=== PATIENT | female | born 1985 ===

== ENCOUNTER 2021-03-09 22:42 | Emergency (ER) | payer SELFPAY ==
[2021-03-10 01:43] LABS: Basophils % (Auto) 0.3 % (0.0-1.8); Eosinophils % (Auto) 0.4 % (0.0-4.3); Hemoglobin 9.8 gm/dl (10.1-14.3); Lymphocytes # (Auto) 1.7 K/mm3 (1.2-5.4); Mean Corpuscular HGB Conc 35 % (30-34); Mean Corpuscular Volume 85 fl (79-97); Monocytes # (Auto) 0.4 K/mm3 (0.0-0.8); Monocytes % (Auto) 3.6 % (0.0-7.3); Platelet Count 303 K/mm3 (140-440); Red Blood Count 3.29 M/mm3 (3.65-5.03); Red Cell Distribution Width 16.5 % (13.2-15.2)
[2021-03-10 02:00] LABS: BUN/Creatinine Ratio 15; Blood Urea Nitrogen 12 mg/dL (7-17); Calcium 9.2 mg/dL (8.4-10.2); Hemolysis Index 4
[2021-03-10 03:01] LABS: HCG Qualitative,Urine Negative (Negative)
[2021-03-10 03:15] LABS: Bilirubin,Urine NEG (Negative); Blood,Urine LG (Negative); Color,Urine Yellow (Yellow); Mucus,Urine 1+ /HPF; Protein,Urine <15 mg/dL mg/dL (Negative); Urobilinogen,Urine < 2.0 mg/dL (<2.0)
--- NOTE | 2021-03-10 08:33 | Emergency Department Report ---
ED Female HPI - General Chief complaint: Vaginal Bleeding Stated complaint: VAGINAL BLEEDING Time Seen by Provider: 03/10/21 07:40 Source: patient Mode of arrival: Ambulatory Limitations: No Limitations - History of Present Illness Initial comments: 36-year-old female with history of fibroids and dysfunctional uterine bleeding for more than a year presents to the ED with heavy vaginal bleeding since last night. Patient states she has been experiencing heavy bleeding for quite some time now. States she has seen Dr. Veloz and Dr. Salcido in the office. Patient states she was recently started on Depo injections. States a couple of weeks ago she was supposed to go to the OR with Dr. Veloz to have a procedure performed, however, at the last minute she states that Dr. Veloz did not think she actually needed the procedure. Patient reports she has still been having irregular bleeding and last night it became very heavy with large cl ots. She came to the ED last night and has been in the waiting room for almost 10 hours now. Patient states that around 2 AM the bleeding slowed down and is currently not as heavy as it was when she came in. She denies any chest pain, shortness of breath, dizziness or syncopal episodes. MD Complaint: vaginal bleeding -: Last night Severity: severe Consistency: intermittent Improves with: none Worsens with: none Are you Now?: No Associated Symptoms: vaginal bleeding. denies: syncope - Related Data Home Medications Medication Instructions Recorded Confirmed Last Taken Iron 1 tab PO DAILY 02/18/21 02/18/21 Unknown Allergies Allergy/AdvReac Type Severity Reaction Status Date / Time No Known Allergies Allergy Unverified 02/18/21 12:09 ED Review of Systems ROS: Stated complaint: VAGINAL BLEEDING Other details as noted in HPI Comment: All other systems reviewed and negative Genitourinary: as per HPI ED Past Medical Hx - Past Medical History Hx Hypertension: No Hx Heart Attack/AMI: No Hx Congestive Heart Failure: No Hx Diabetes: No Hx GERD: Yes Hx Liver Disease: No Hx Sickle Cell Disease: No Hx Arthritis: No Hx Headaches / Migraines: No Hx Seizures: No Hx Kidney Stones: Yes (??-NOT SURE-SAID PASSED SM ONE BEFORE IN UNDERWEAR) Hx Asthma: No Hx COPD: No Hx Tuberculosis: No Hx HIV: No - Surgical History Hx Pacemaker: No Hx Internal Defibrillator: No Hx Breast Surgery: Yes (DINORAH. IMPLANTS) - Social History Smoking Status: Never Smoker - Medications Home Medications: Home Medications Medication Instructions Recorded Confirmed Last Taken Type Iron 1 tab PO DAILY 02/18/21 02/18/21 Unknown History ED Physical Exam - General Limitations: No Limitations General appearance: alert, in no apparent distress - Head Head exam: Present: atraumatic, normocephalic - Eye Eye exam: Present: normal appearance, EOMI - ENT ENT exam: Present: mucous membranes moist - Neck Neck exam: Present: normal inspection - Respiratory Respiratory exam: Present: normal lung sounds bilaterally. Absent: respiratory distress - Cardiovascular Cardiovascular Exam: Present: regular rate, normal rhythm - GI/Abdominal GI/Abdominal exam: Present: soft. Absent: distended, tenderness - Extremities Exam Extremities exam: Present: normal inspection - Neurological Exam Neurological exam: Present: alert, oriented X3 - Psychiatric Psychiatric exam: Present: normal affect, normal mood - Skin Skin exam: Present: warm, dry, intact, normal color ED Course Vital Signs 03/10/21 03/10/21 03/10/21 01:06 07:53 08:01 Temperature 99.2 F Pulse Rate 129 H 105 H 97 H Respiratory 16 11 L 11 L Rate Blood Pressure 135/92 123/67 Blood Pressure [Right] O2 Sat by Pulse 99 100 100 Oximetry 03/10/21 09:02 Temperature Pulse Rate 97 H Respiratory 16 Rate Blood Pressure Blood Pressure 104/53 [Right] O2 Sat by Pulse 100 Oximetry ED Medical Decision Making - Lab Data Result diagrams: 03/10/21 01:11 03/10/21 01:11 - Medical Decision Making 36-year-old female, history of dysfunctional uterine bleeding for the past year presents to ED with vaginal bleeding. Patient states she was initially having heavy bleeding with clots last night, however, is much improved at this time. Vital signs are normal. Hemoglobin is 9.8. Patient does not require a transfusion at this time. She will be discharged. She is advised to follow-up with Dr. Veloz. Return precautions given. - Differential Diagnosis Anemia, dysfunctional uterine bleeding, fibroids Critical care attestation.: If time is entered above; I have spent that time in minutes in the direct care of this critically ill patient, excluding procedure time. ED Disposition Clinical Impression: Dysfunctional uterine bleeding Disposition: DC-01 TO HOME OR SELFCARE Is pt being admited?: No Condition: Stable Instructions: Dysfunctional Uterine Bleeding Referrals: DARRYN VELOZ MD [Staff Physician] - [facility] Time of Disposition: 08:34
[2021-03-10 09:02] VITALS: BP 104/53
== END 2021-03-10 09:10 | disposition home or self-care (01) ==
LOC: ED 22:42
DX: N93.8 Other specified abnormal uterine and vaginal bleeding (principal); K21.9 Gastro-esophageal reflux disease without esophagitis; N20.0 Calculus of kidney; Z98.890 Other specified postprocedural states; Z79.899 Other long term (current) drug therapy
CPT/HCPCS: 36415; 80048; 81001; 81025; 85025; 86850; 86900; 86901; 87086; 99283

== ENCOUNTER 2021-06-26 11:28 | Observation (INO) | payer SELFPAY ==
--- NOTE | 2021-06-26 11:37 | Emergency Department Report ---
ED Female HPI - General Stated complaint: LOW IRON/BLOOD TRANSFUSION Time Seen by Provider: 06/26/21 11:29 Source: patient Limitations: Language Barrier (Strawhat Blocking Operator used) - History of Present Illness Initial comments: 36-year-old female, history of dysfunctional uterine bleeding, fibroids, presents to ED for low hemoglobin. Patient reports history of heavy vaginal bleeding. States she is currently taking any for approximately 40 days straight. Patient states her certified pediatric nurse practitioner has her taking Depo injections. Patient states 2 days ago she had an appointment with certified pediatric nurse practitioner, Dr. Sosa. Patient reports she had blood drawn at that time. She received a call today informing her that her hemoglobin was low and that she needed to come to the ED for platelet transfusion. Patient reports headache, dizziness. MD Complaint: vaginal bleeding -: days(s) (40) Severity: severe Consistency: constant Improves with: none Worsens with: none Are you Now?: No Associated Symptoms: vaginal bleeding, headaches, weakness. denies: shortness of breath - Related Data Home Medications Medication Instructions Recorded Confirmed Last Taken Iron 1 tab PO DAILY 02/18/21 06/26/21 06/25/21 22:00 Allergies Allergy/AdvReac Type Severity Reaction Status Date / Time No Known Allergies Allergy Unverified 02/18/21 12:09 ED Review of Systems ROS: Stated complaint: LOW IRON/BLOOD TRANSFUSION Other details as noted in HPI Comment: All other systems reviewed and negative Genitourinary: as per HPI, abnormal menses Neurological: other (Reports dizziness) ED Past Medical Hx - Past Medical History Hx Hypertension: No Hx Heart Attack/AMI: No Hx Congestive Heart Failure: No Hx Diabetes: No Hx GERD: Yes Hx Liver Disease: No Hx Sickle Cell Disease: No Hx Arthritis: No Hx Headaches / Migraines: No Hx Seizures: No Hx Kidney Stones: Yes (??-NOT SURE-SAID PASSED SM ONE BEFORE IN UNDERWEAR) Hx Asthma: No Hx COPD: No Hx Tuberculosis: No Hx HIV: No - Surgical History Hx Pacemaker: No Hx Internal Defibrillator: No Hx Breast Surgery: Yes (DINORAH. IMPLANTS) - Social History Smoking Status: Never Smoker - Medications Home Medications: Home Medications Medication Instructions Recorded Confirmed Last Taken Type Iron 1 tab PO DAILY 02/18/21 06/26/21 06/25/21 22:00 History ED Physical Exam - General General appearance: alert, in no apparent distress - Head Head exam: Present: atraumatic, normocephalic - Eye Eye exam: Present: normal appearance, EOMI - ENT ENT exam: Present: mucous membranes moist - Neck Neck exam: Present: normal inspection - Respiratory Respiratory exam: Present: normal lung sounds bilaterally. Absent: respiratory distress - Cardiovascular Cardiovascular Exam: Present: normal rhythm, tachycardia - GI/Abdominal GI/Abdominal exam: Present: soft. Absent: distended, tenderness - Extremities Exam Extremities exam: Present: normal inspection - Neurological Exam Neurological exam: Present: alert, oriented X3 - Psychiatric Psychiatric exam: Present: normal affect, normal mood - Skin Skin exam: Present: warm, dry, intact, pallor ED Course Vital Signs 06/26/21 06/26/21 06/26/21 11:44 12:03 12:18 Temperature 99.3 F 98.2 F Pulse Rate 131 H 122 H Respiratory 20 16 14 Rate Blood Pressure 116/87 Blood Pressure 112/63 [Left] O2 Sat by Pulse 98 98 98 Oximetry 06/26/21 13:07 Temperature Pulse Rate 127 H Respiratory 14 Rate Blood Pressure Blood Pressure 117/53 [Left] O2 Sat by Pulse 100 Oximetry - Consultations Consultation #1: 06/26/21 14:[address] Sosa. States she will admit the patient. ED Medical Decision Making - Lab Data Result diagrams: 06/26/21 11:41 06/26/21 11:41 - Medical Decision Making 36-year-old female, history of dysfunctional uterine bleeding, uterine fibroids, presents to ED with a low hemoglobin. Hemoglobin is 4.3. 2 units of PRBCs ordered for transfusion. I spoke with Dr. Sosa, patient's certified pediatric nurse practitioner, who will admit the patient for further management. - Differential Diagnosis Anemia, dysfunctional uterine bleeding Critical Care Time: Yes Critical care time in (mins) excluding proc time.: 35 Critical care attestation.: If time is entered above; I have spent that time in minutes in the direct care of this critically ill patient, excluding procedure time. Critical Care Time: 35 min ED Disposition Clinical Impression: Anemia, DUB (dysfunctional uterine bleeding) Disposition: ADMITTED INPATIENT Is pt being admited?: Yes Condition: Stable Referrals: PRIMARY CARE, [Primary Care Provider] - 3-5 Days Time of Disposition: 14:36
[2021-06-26 12:29] LABS: Basophils % (Auto) 0.4 % (0.0-1.8); Lymphocytes # (Auto) 0.6 K/mm3 (1.2-5.4); Lymphocytes % (Auto) 13.1 % (13.4-35.0); Mean Corpuscular HGB Conc 32 % (30-34); Mean Corpuscular Volume 89 fl (79-97); Monocytes % (Auto) 5.4 % (0.0-7.3); Platelet Count 280 K/mm3 (140-440); Red Cell Distribution Width 14.8 % (13.2-15.2)
[2021-06-26 12:48] LABS: Blood Urea Nitrogen 10 mg/dL (7-17); Calcium 8.9 mg/dL (8.4-10.2); Hemolysis Index 3
[2021-06-26 12:49] LABS: BUN/Creatinine Ratio 14
[2021-06-26 13:35] LABS: Monocytes # (Auto) 0.3 K/mm3 (0.0-0.8); Red Blood Count 1.52 M/mm3 (3.65-5.03)
[2021-06-26 14:04] LABS: Hematocrit 13.5 % (30.3-42.9); Hemoglobin 4.3 gm/dl (10.1-14.3)
[2021-06-26] MEDS ORDERED: SODIUM CHLORIDE 0.9% 500 ML 500 ML IV ONE ×2 (14:04→15:44)
--- NOTE | 2021-06-26 15:42 | History and Physical Report ---
History of Present Illness Date of examination: 06/26/21 Date of admission: 06/26/21 14:39 Chief complaint: dysfunctional uterine bleeding menorrhagia severe anemia Past History Past Surgical History: other (bilateral breast implants) Social history: no significant social history Medications and Allergies Allergies Allergy/AdvReac Type Severity Reaction Status Date / Time No Known Allergies Allergy Unverified 02/18/21 12:09 Home Medications Medication Instructions Recorded Confirmed Last Taken Type Iron 1 tab PO DAILY 02/18/21 06/26/21 06/25/21 22:00 History Review of Systems All systems: negative (heavy vaginal bleeding) - Vital Signs Vital signs: Vital Signs Temp Pulse Resp BP Pulse Ox 99.3 F 131 H 20 116/87 98 06/26/21 11:44 06/26/21 11:44 06/26/21 11:44 06/26/21 11:44 06/26/21 11:44 Temp Pulse Resp BP Pulse Ox 98.9 F 117 H 14 113/62 100 06/26/21 15:30 06/26/21 15:30 06/26/21 15:30 06/26/21 15:30 06/26/21 15:30 - Physical Exam Breasts: Positive: deferred Cardiovascular: Other (tachycardia) Lungs: Positive: Clear to auscultation Abdomen: Positive: normal appearance, normal bowel sounds Genitourinary (Female): Positive: normal external genitalia Vagina: Positive: normal moisture Anus/Rectum: Positive: normal perianal skin Extremities: Positive: normal Deep Tendon Reflex Grade: Normal +2 Results Result Diagrams: 06/26/21 11:41 06/26/21 11:41 Abnormal lab results 06/26/21 06/26/21 06/26/21 Range/Units 11:41 11:41 11:46 RBC 1.52 L (3.65-5.03) M/mm3 Hgb 4.3 L* (10.1-14.3) gm/dl Hct 13.5 L* (30.3-42.9) % Lymph % (Auto) 13.1 L (13.4-35.0) % Lymph # (Auto) 0.6 L (1.2-5.4) K/mm3 Seg Neutrophils % 80.1 H (40.0-70.0) % Chloride 109.8 H (98-107) mmol/L Carbon Dioxide 20 L (22-30) mmol/L Glucose 124 H (65-100) mg/dL Crossmatch See Detail All other labs normal. Assessment and Plan dysfunctional uterine bleeding: obtain US and consider provera at discharge. severe anemia: admit for blood transfusion Bethany Sosa MD
[2021-06-26] MEDS ORDERED: WITCH HAZEL/ GLYCERIN PAD TP PRN (15:46)
[2021-06-26] MEDS ORDERED: ONDANSETRON 4 MG/2 ML INJ IV PRN (15:46)
[2021-06-26] MEDS ORDERED: LANOLIN/ZINC/DIMETHICONE (LANSINOH) 7 GM TP PRN (15:46)
[2021-06-26] MEDS ORDERED: PROMETHAZINE 25 MG RECT SUPP PR PRN (15:46)
[2021-06-26] MEDS ORDERED: PROMETHAZINE 25 MG TAB PO PRN (15:46)
[2021-06-26] MEDS ORDERED: MAGNESIUM HYDROXIDE (MOM) ORAL LIQD UDC PO PRN (15:46)
[2021-06-26] MEDS ORDERED: HYDROcodone/ACETAMINOPHEN 5-325 MG TAB PO PRN (15:46)
[2021-06-26] MEDS: ACETAMINOPHEN 325 MG TAB PO PRN ×2 (18:25→22:13)
[2021-06-26] MEDS: diphenhydrAMINE 25 MG CAP PO PRN (18:25)
--- NOTE | 2021-06-26 20:37 | Ultrasound Report ---
ULTRASOUND PELVIS INDICATION / CLINICAL INFORMATION: dysfunctional uterine bleeding: DAIRY MANAGER US. TECHNIQUE: Transvaginal. Duplex Color Doppler used: Yes. COMPARISON: None available FINDINGS: UTERUS: - Appearance: Heterogeneous. - Size (cm): 7.0 x 5.2 x 6.7 - Endometrial Complex (if present): No significant abnormality.. Thickness in cm (if measured) = 0.6 - Mass or cyst: 2 heterogeneous fibroids in the uterine fundus measuring 4.1 cm and 3.6 cm respective ly. The larger fibroid appears submucosal. - Additional findings: Small nabothian cysts in the cervix. RIGHT ADNEXA: No significant ovarian cyst or mass. Normal color Doppler blood flow. LEFT ADNEXA: No significant ovarian cyst or mass. Normal color Doppler blood flow. URINARY BLADDER: No significant abnormality. FREE FLUID: None. ADDITIONAL FINDINGS: None. IMPRESSION: 1. Fibroid in the uterine fundus one of which is submucosal in location. Signer Name: Celsa Fink MD Signed: 06/26/2021 8:32 PM Workstation Name: [id number]
[2021-06-27] MEDS: IBUPROFEN 600 MG TAB PO SCH ×2 (03:35→05:36)
[2021-06-27 07:56] LABS: Hematocrit 24.6 % (30.3-42.9); Hemoglobin 8.4 gm/dl (10.1-14.3)
--- NOTE | 2021-06-27 10:06 | Progress Note ---
Subjective - Subjective Date of service: 06/27/21 Interval history: Dysfunctional uterine bleeding with submucosal fibroids Severe anemia hemoglobin 4.5 Plan for transfusion of 4 units PRBCs With the chemical research worker we discussed surgical options Risk benefits possible complications of each reviewed to include but not limited to NovaSure ablation, myomectomy, hysterectomy. Patient does not want surgery on this admission. She will be discharged home after 4 units PRBCs transfusion follow-up in 48 hours for an outpatient plan for surgical management. She remains hemodynamically stable. Transfusion of 4 units total for persistent tachycardia and headache with active vaginal bleeding. Bethany Sosa MD Patient reports: appetite normal, voiding normally, ambulating normally Objective - Vital Signs Latest vital signs: Vital Signs Temp Pulse Pulse Resp BP BP Pulse Ox 06/27/21 07:50 98.2 F 88 18 92/50 99 06/27/21 06:01 98.7 F 98 H 16 104/61 99 06/27/21 05:36 18 06/27/21 03:35 18 06/27/21 00:55 98.6 F 105 H 18 107/64 98 06/27/21 00:14 98.7 F 105 H 16 114/67 99 06/26/21 23:55 103 H 18 104/67 99 06/26/21 23:25 105 H 18 114/67 99 06/26/21 23:13 18 06/26/21 22:55 102 H 18 113/77 99 06/26/21 22:25 99.1 F 109 H 18 109/64 100 06/26/21 22:20 99.1 F 06/26/21 22:13 18 06/26/21 22:00 109 H 110 H 18 106/61 100 06/26/21 21:08 118 H 16 111/65 100 06/26/21 19:25 18 06/26/21 18:15 99.8 F H 108 H 18 117/68 06/26/21 16:31 99.9 F H 115 H 18 129/75 06/26/21 16:01 99.5 F 110 H 16 111/65 97 06/26/21 15:47 100 06/26/21 15:46 98.9 F 119 H 14 124/63 99 06/26/21 15:31 98.2 F 115 H 18 113/61 06/26/21 15:30 98.9 F 117 H 14 113/62 100 06/26/21 15:16 98.5 F 124 H 16 121/63 100 06/26/21 13:07 127 H 14 117/53 100 06/26/21 12:18 14 98 06/26/21 12:03 98.2 F 122 H 16 112/63 98 06/26/21 11:44 99.3 F 131 H 20 116/87 98 Intake and Output 06/26/21 06/27/21 06/27/21 23:59 07:59 15:59 Intake Total 380 430 Balance 380 430 Intake: IV 10 Right Antecubital 10 Oral 120 Intake, Free Water 180 Blood Product 250 250 Leukoreduced Red Blood 0 250 Cells Unit [id number] Leukoreduced Red Blood 250 Cells Unit [id number] Other: Total, Intake Amount 120 Voiding Method Toilet # Voids Void 1 2 Weight 68.946 kg - Exam Breasts: Present: deferred Cardiovascular: Present: Regular rate Lungs: Present: Clear to auscultation Abdomen: Present: normal appearance, soft, normal bowel sounds Uterus: Present: normal Extremities: Present: normal Deep Tendon Reflex Grade: Normal but brisk +3 - Labs Labs: Abnormal lab results 06/26/21 06/26/21 06/26/21 Range/Units 11:41 11:41 11:46 RBC 1.52 L (3.65-5.03) M/mm3 Hgb 4.3 L* (10.1-14.3) gm/dl Hct 13.5 L* (30.3-42.9) % Lymph % (Auto) 13.1 L (13.4-35.0) % Lymph # (Auto) 0.6 L (1.2-5.4) K/mm3 Seg Neutrophils % 80.1 H (40.0-70.0) % Chloride 109.8 H (98-107) mmol/L Carbon Dioxide 20 L (22-30) mmol/L Glucose 124 H (65-100) mg/dL Crossmatch See Detail 06/27/21 Range/Units 07:43 RBC (3.65-5.03) M/mm3 Hgb 8.4 L D (10.1-14.3) gm/dl Hct 24.6 L D (30.3-42.9) % Lymph % (Auto) (13.4-35.0) % Lymph # (Auto) (1.2-5.4) K/mm3 Seg Neutrophils % (40.0-70.0) % Chloride (98-107) mmol/L Carbon Dioxide (22-30) mmol/L Glucose (65-100) mg/dL Crossmatch
--- NOTE | 2021-06-27 11:33 | Discharge Summary ---
Providers - Providers Date of Admission: 06/26/21 14:39 Date of discharge: 06/27/21 Attending physician: DARRYN VELOZ MD Primary care physician: PRINTING SERVICES COORDINATOR Hospitalization Reason for admission: other (severe anemia) Condition at discharge: Stable Disposition: 01 HOME / SELF CARE / HOMELESS Plan - Provider Discharge Summary Additional instructions: [] Smoking cessation referral if applicable(refer to patient education folder for contact #) [] Refer to [facility] Booklet Call your doctor immediately for: * Fever > 100.5 * Heavy vaginal bleeding ( >1 pad per hour) * Severe persistent headache * Shortness of breath * Reddened, hot, painful area to leg or breast * Drainage or odor from incision. * Keep incision clean and dry at all times and follow doctor's instructions regarding bathing/showering - Follow up plan Follow up: PRIMARY CARE, [Primary Care Provider] - 3-5 Days
[2021-06-27] MEDS: diphenhydrAMINE 25 MG CAP PO PRN (14:03)
[2021-06-27] MEDS: ACETAMINOPHEN 325 MG TAB PO PRN (14:03)
[2021-06-27 20:12] VITALS: BP 113/68
== END 2021-06-27 20:00 | disposition home or self-care (01) ==
LOC: ED 11:28 → OB 14:39
PROVIDERS: ADMIT Obstetrics & Gynecology; ATTEND Obstetrics & Gynecology
DX: N93.8 Other specified abnormal uterine and vaginal bleeding (principal); Z20.822 Contact with and (suspected) exposure to COVID-19; D64.9 Anemia, unspecified; N92.0 Excessive and frequent menstruation with regular cycle; K21.9 Gastro-esophageal reflux disease without esophagitis; Z79.899 Other long term (current) drug therapy; Z98.890 Other specified postprocedural states; Z87.442 Personal history of urinary calculi
CPT/HCPCS: 36415; 36430; 76830; 80048; 84703; 85014; 85018; 85025; 86850; 86900; 86901; 86920; 99291; G0378; J7040; P9016; U0003

== ENCOUNTER 2021-09-04 06:03 | Observation (INO) | payer OTHER, SELFPAY ==
--- NOTE | 2021-09-01 11:48 | History and Physical Report ---
History of Present Illness Date of examination: 09/01/21 Date of admission: 09/04/21 History of present illness: This is a 36 yo with significant menorrhagia and subsequent anemia that has required for the have multiple transfusions of PRBCs. Medical tx is not helping. PT had an EMB last year for this which was WNL. PT had an U/S showing a 3.2 cm submucosal myoma and a 3 cm fundal myoma. PT seen and counseled via middle school english teacher. Past History Past Medical History: other (anemia) Past Surgical History: breast surgery Social history: no significant social history - Obstetrical History : 2 Para: 2 Medications and Allergies Allergies Allergy/AdvReac Type Severity Reaction Status Date / Time No Known Allergies Allergy Verified 06/26/21 15:58 Home Medications Medication Instructions Recorded Confirmed Last Taken Type Ferrous Sulfate [Feosol 325 MG tab] 1 tab PO BID 08/31/21 08/31/21 Unknown History Review of Systems All systems: negative (except HPI) - Physical Exam Cardiovascular: Regular rate, Normal S1, Normal S2 Lungs: Positive: Clear to auscultation, Normal air movement Abdomen: Positive: normal appearance Results All other labs normal. Assessment and Plan - Patient Problems (1) Anemia Status: Acute (2) Menorrhagia Status: Acute Plan to address problem: PT is for RAH and B/L salpingectomy on 09/04. PT fully consented. R/B/A d/w pt. Pt understands and accepts that and agrees to proceed with surgery. PT understands that she will not be able to conceive after this and accepts that.
[2021-09-02 14:35] LABS: Basophils % (Auto) 0.5 % (0.0-1.8); Eosinophils # (Auto) 0.1 K/mm3 (0.0-0.4); Eosinophils % (Auto) 1.1 % (0.0-4.3); Hematocrit 35.2 % (30.3-42.9); Hemoglobin 11.5 gm/dl (10.1-14.3); Lymphocytes # (Auto) 0.8 K/mm3 (1.2-5.4); Lymphocytes % (Auto) 15.6 % (13.4-35.0); Mean Corpuscular HGB Conc 33 % (30-34); Mean Corpuscular Volume 91 fl (79-97); Monocytes # (Auto) 0.2 K/mm3 (0.0-0.8); Monocytes % (Auto) 4.3 % (0.0-7.3); Platelet Count 388 K/mm3 (140-440); Red Blood Count 3.87 M/mm3 (3.65-5.03); Red Cell Distribution Width 13.2 % (13.2-15.2)
[2021-09-04] MEDS ORDERED: LACTATED RINGERS 1,000 ML ONE ×2 (06:25→10:24)
[2021-09-04] MEDS ORDERED: BACTERIOSTATIC SODIUM CHLORIDE 0.9% 30 ML VIAL INFILTRATI ONE (06:36)
[2021-09-04] MEDS ORDERED: METHYLENE BLUE 50 MG/10 ML AMP ONE (07:20)
[2021-09-04] MEDS ORDERED: BUPIVACAINE/PF (0.5%) 5 MG/1 ML 30 ML VIAL INFILTRATI ONE (07:20)
[2021-09-04] MEDS ORDERED: NEOMY 40 MG/POLYMYXIN B 200,000 UNITS/ML (GU) AMPULE IR ONE ×2 (07:20→08:48)
[2021-09-04] MEDS ORDERED: dexAMETHasone 4 MG/ML VIAL ONE (07:25)
[2021-09-04] MEDS ORDERED: BUPIVACAINE/PF (0.25%) 2.5 MG/ML 30 ML VIAL INFILTRATI ONE (07:25)
[2021-09-04] MEDS ORDERED: cloNIDine/PF 1,000 MCG/10 ML VIAL EP ONE (07:25)
--- NOTE | 2021-09-04 07:41 | Anesthesia Consultation ---
Anesthesia Consult and Med Hx Date of service: 09/04/21 - Airway Anesthetic Teeth Evaluation: Good (Jagged front incisors. No visible chips. ) ROM Head & Neck: Adequate Mental/Hyoid Distance: Adequate Mallampati Class: Class I Intubation Access Assessment: Probably Good - Pulmonary Exam CTA: Yes - Cardiac Exam Anesthetic Concerns: childhood murmur - Pre-Operative Health Status ASA Pre-Surgery Classification: ASA2 Proposed Anesthetic Plan: General Nerve Block: bilateral TAP block - Pulmonary Hx Smoking: No Hx Asthma: No COPD: No Hx Pneumonia: No Hx Sleep Apnea: No - Cardiovascular System Hx Hypertension: No Hx Heart Attack/AMI: No Hx Cardia Arrhythmia: Yes (Hx of palpitations due to anxiety - resolved) Hx Pacemaker: No Hx Internal Defibrillator: No Hx Heart Murmur: Yes ( CHILD) - Central Nervous System 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 Current H&H 11 & 35.) Hx Sickle Cell Disease: No - Other Systems Hx Alcohol Use: No Hx Substance Use: No Hx Cancer: No Hx Obesity: No - Additional Comments Anesthesia Medical History Comments: No hx of anesthetic complications.
--- NOTE | 2021-09-04 07:42 | Anesthesia Day of Surgery ---
Anesthesia Day of Surgery - Day of Surgery Patient Examined: Yes Patient H&P Reviewed: Yes Patient is NPO: Yes
[2021-09-04] MEDS ORDERED: ONDANSETRON 4 MG/2 ML INJ ONE ×2 (07:48→10:25)
[2021-09-04] MEDS ORDERED: ESMOLOL 100 MG/10 ML INJ IV ONE (07:48)
[2021-09-04] MEDS ORDERED: ROCURONIUM 50 MG/5 ML INJ IV ONE ×2 (07:48→10:25)
[2021-09-04] MEDS ORDERED: LIDOCAINE PF 100 MG/5 ML (CARDIAC SYRINGE) IV ONE (07:49)
[2021-09-04] MEDS ORDERED: propofoL 200 MG/20 ML VIAL IV ONE (07:49)
[2021-09-04] MEDS ORDERED: ACETAMINOPHEN 325 MG TAB ONE (07:50)
[2021-09-04] MEDS ORDERED: fentaNYL 100 MCG/2 ML INJ IV SCH (08:00)
[2021-09-04] MEDS ORDERED: CELECOXIB 200 MG CAP PO NR (08:00)
[2021-09-04] MEDS ORDERED: ACETAMINOPHEN 325 MG/10.15 ML ORAL LIQD UNIT DOSE PO NR (08:00)
[2021-09-04] MEDS ORDERED: LACTATED RINGERS 1,000 ML IV SCH (08:00)
[2021-09-04] MEDS ORDERED: SCOPOLAMINE TRANSDERMAL PATCH 72 HR TD NR (08:00)
[2021-09-04] MEDS ORDERED: MIDAZOLAM 2 MG/2 ML INJ IV NR (08:00)
[2021-09-04] MEDS ORDERED: GABAPENTIN 300 MG CAP PO NR (08:00)
[2021-09-04] MEDS ORDERED: ceFAZolin/Water 2 GM/20 ML 2 GM/20 ML SYRINGE IV ONE (08:12)
[2021-09-04] MEDS ORDERED: SODIUM CHLORIDE 0.9% IRRIG SOLN 2000 ML IR ONE (08:48)
[2021-09-04] MEDS ORDERED: SODIUM CHLORIDE 0.9% IRR 1,500 ML BOTTLE IR ONE (08:48)
[2021-09-04] MEDS ORDERED: ceFAZolin/Water 2 GM/20 ML 2 GM/20 ML SYRINGE IV NR (09:00)
[2021-09-04] MEDS ORDERED: ACETAMINOPHEN 325 MG TAB PO ONE (10:00)
[2021-09-04] MEDS ORDERED: PHENYLEPHRINE/NS 1,000 MCG/10 ML SYRINGE (OR USE) IV ONE (10:22)
[2021-09-04] MEDS ORDERED: dexAMETHasone 20 MG/5 ML VIAL ONE (10:25)
[2021-09-04] MEDS ORDERED: NEOSTIGMINE 10MG/10 ML INJ MDV ONE (10:39)
[2021-09-04] MEDS ORDERED: GLYCOPYRROLATE 0.4 MG/2 ML INJ ONE ×2 (10:39)
--- NOTE | 2021-09-04 10:53 | Post Operative Note ---
Date of procedure: 09/04/21 Pre-op diagnosis: menorrhagia, fibroid uterus Post-op diagnosis: same Findings: Patient with uterus that sounded to 10 cm. She had a 4 cm posterior pedunculated fibroid. Uterus otherwise within normal limits except for mild omental adhesions to the posterior side of the uterus. Bilateral tubes and ovaries within normal limits. The rest the general abdominal pelvic survey was within normal limits. Procedure: Indication: Patient is a 36-year-old with significant menorrhagia that has required multiple blood transfusions over the last year. Patient as result here for a robotic hysterectomy and bilateral salpingectomy. Procedure: Patient was taken to the operating room and prepped and draped in the usual fashion. Attention was first turned vaginally for placement of the V care cup uterine manipulator. This was done in the usual fashion including anchoring stitches at 12:00 and 6:00 of the cervical stroma with 0 Vicryl. The large Vcare cup was chosen and the manipulator was placed successfully and without difficulty. Attention was now turned abdominally. In the left upper quadrant about 2 fingerbreadths inferior to the costal margin in the midclavicular line, an 8 mm incision was made. The 8 mm trocar was successfully placed and the placement was confirmed with the camera. Attention was now turned to the placement of the 3 robotic trocars. The 2 lower quadrant ones were about 2 cm superior and med ial to the ASIS on each side. These were 8 mm ports. They were placed under direct visualization with without difficulty. The 12 mm umbilical trocar site was also placed under direct visualization successfully and without difficulty. At this point the patient was placed in steep Trendelenburg. The robot was docked to the trochars. At this point I broke scrub and proceeded to the da Jo Ann console. First the pelvis was assessed and findings noted above. Good ureteral peristalsis was noted bilaterally both at the beginning of the case and at the end of the case. Attention was first turned to the left adnexa where the fallopian tube was resected from its attachments using the robotic vessel sealer. This dissection was carried to the round ligament. The ovarian ligament was also clamped cauterized and resected with the vessel sealer. The round ligament was also clamped cauterized and cut with the vessel sealer. Good hemostasis was noted. This was then done in the exact same fashion on the right side with equal success and good hemostasis. At this point attention was turned the bladder flap which was created using EndoShears. Good hemostasis noted. The anterior colpotomy ring indentation was then identified from the V care cup. Colpotomy incision was made until the green Vcare cup was visualized. This incision was then extended bilaterally. Attention was then turned posteriorly where the posterior colpotomy ring indentation was identified and the colpotomy incision was made. The colpotomy incision posteriorly was then extended bilaterally. The posterior peritoneal flap was created at this point bilaterally. Good hemostasis noted. At this point attention was turned to the the uterine vasculature which was clamped cauterized and cut using the vessel sealer on both sides. After this was completed the colpotomy was completed at the 3:00 and 9:00 positions. At this point the colpotomy was completed 360 degrees. At this point the uterus and tubes were successfully removed vaginally without difficulty. Attention was turned to closure of the vaginal cuff which was done using 0 V-Loc in a running fashion. Vaginal cuff was closed successfully and without difficulty. At this point the pelvis was well irrigated. The abdomen was desufflated and good hemostasis was noted. Abdomen was reinsufflated. Macy was then applied to all the areas of dissection. At this point the robot was undocked from the trochars. I scrubbed back in and first inspected the vaginal cuff both visually and with palpation. Good hemostasis noted and good integrity of the cuff was noted. Laparoscopically good hemostasis still noted throughout. The 12 mm trocar was removed and that site was closed using the Vj Beltrán device and a 0 Vicryl. At this point the abdomen was fully desufflated. The other 3 trochars were removed and those trocar sites were closed using 4-0 Vicryl in a subcuticular fashion as well as the 12 mm site. The procedure was concluded at this point. Patient tolerated the procedure well. All instrument lap counts were correct. Patient taken to the recovery room in stable condition. Anesthesia: YANA Surgeon: CAITLYN GARCIA Resident Care Technician: DARRYN VELOZ Estimated blood loss: other (50 cc) Pathology: list (uterus and tubes) Specimen disposition: to lab Condition: stable Disposition: PACU
[2021-09-04] MEDS ORDERED: MORPHINE 4 MG/1 ML INJ IV PRN (10:54)
[2021-09-04] MEDS ORDERED: IBUPROFEN 800 MG TAB PO PRN (10:54)
[2021-09-04] MEDS: HYDROmorphone 1 MG/1 ML INJ IV PRN ×2 (11:44→12:05)
--- NOTE | 2021-09-04 16:58 | Post Anesthesia Evaluation ---
- Post Anesthesia Evaluation Patient Participated: Yes Airway Patent: Yes Stable Respiratory Function: Yes Nausea/Vomiting: No Temp > 96.8F: Yes Pain Manageable: Yes Adequeate Hydration: Yes Anesthesia Complications: No Block Receding Appropriately: Not Applicable Patient on Ventilator: No
[2021-09-04] MEDS: oxyCODONE /ACETAMINOPHEN 5-325MG TAB PO PRN (18:55)
[2021-09-04] MEDS: ACETAMINOPHEN 325 MG TAB PO PRN (23:05)
[2021-09-05] MEDS: oxyCODONE /ACETAMINOPHEN 5-325MG TAB PO PRN (02:20)
[2021-09-05 05:20] LABS: Hematocrit 28.7 % (30.3-42.9); Hemoglobin 9.5 gm/dl (10.1-14.3)
[2021-09-05] MEDS: ACETAMINOPHEN 325 MG TAB PO PRN (06:37)
--- NOTE | 2021-09-05 12:43 | Progress Note ---
Assessment and Plan postop course uneventful to date meets discharge criteria: hb stable ambulatory afebrile tolerating PO pain well controlled plan for d/c to home fup Dr Yancey one week Bethany Sosa MD Subjective - Subjective Date of service: 09/05/21 Patient reports: appetite normal, voiding normally, pain well controlled, ambulating normally Objective - Vital Signs Latest vital signs: Vital Signs Temp Pulse Resp BP BP Pulse Ox 09/05/21 08:14 98 09/05/21 07:31 98.0 F 61 16 93/65 99 09/05/21 07:30 98.0 F 52 L 18 93/40 99 09/05/21 05:26 98.3 F 53 L 16 90/50 99 09/05/21 00:20 98.7 F 59 L 16 100/59 97 09/04/21 20:40 97.8 F 69 15 96/56 100 09/04/21 20:00 99 09/04/21 16:40 97.8 F 59 L 14 114/61 100 09/04/21 13:20 98.1 F 57 L 14 107/69 100 09/04/21 13:00 68 19 105/61 98 09/04/21 12:45 61 19 108/62 98 Intake and Output 09/04/21 09/05/21 09/05/21 23:59 07:59 15:59 Intake Total 120 640 Output Total 500 800 Balance -380 -160 Intake: Oral 120 120 Intake, Free Water 520 Output: Urine 500 800 Void 500 800 Other: Total, Intake Amount 120 120 Total, Output Amount 250 400 # Voids Void 1 1 - Exam Breasts: Present: deferred Cardiovascular: Present: Regular rate Abdomen: Present: normal appearance, soft, normal bowel sounds Extremities: Present: normal Deep Tendon Reflex Grade: Normal +2 Incision: Present: dry, intact, dressed - Labs Labs: Abnormal lab results 09/05/21 Range/Units 05:04 Hgb 9.5 L (10.1-14.3) gm/dl Hct 28.7 L D (30.3-42.9) %
--- NOTE | 2021-09-05 12:44 | Discharge Summary ---
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 Hospitalization Procedure: other (robaotic assisted hysterectomy with b/l salpingectomy) Incision: normal, dry, intact Condition at discharge: Stable Disposition: 01 HOME / SELF CARE / HOMELESS Plan - Discharge Medications Prescriptions: Ibuprofen [Motrin 800 MG tab] 800 mg PO Q8H PRN #30 tablet PRN Reason: Pain, Moderate (4-6) oxyCODONE /ACETAMINOPHEN [Percocet 5/325 mg] 1 tab PO Q6H PRN #30 tablet PRN Reason: Pain, Moderate (4-6) - Provider Discharge Summary Activity: no sex for 6 weeks Additional instructions: [] Smoking cessation referral if applicable(refer to patient education folder for contact #) [] Refer to [facility] Booklet Call your doctor immediately for: * Fever > 100.5 * Heavy vaginal bleeding ( >1 pad per hour) * Severe persistent headache * Shortness of breath * Reddened, hot, painful area to leg or breast * Drainage or odor from incision. * Keep incision clean and dry at all times and follow doctor's instructions regarding bathing/showering - Follow up plan Follow up: PRIMARY CARE, [Primary Care Provider] - 7 Days
[2021-09-05 13:07] VITALS: BP 95/46
== END 2021-09-05 14:15 | disposition home or self-care (01) ==
LOC: OR 06:03 → OB 10:54
PROVIDERS: ADMIT Obstetrics & Gynecology; ATTEND Obstetrics & Gynecology
DX: N92.0 Excessive and frequent menstruation with regular cycle (principal); Z20.822 Contact with and (suspected) exposure to COVID-19; D64.9 Anemia, unspecified; Z90.710 Acquired absence of both cervix and uterus; Z79.899 Other long term (current) drug therapy; Z98.890 Other specified postprocedural states
CPT/HCPCS: 36415; 58571; 84703; 85014; 85018; 85025; 86850; 86900; 86901; 88307; 96374; A4217; G0378; J0690; J0735; J1100; J1170; J2001; J2250; J2270; J2370; J2405; J2704; J2710; J3010; J3490; J7120; S2900; U0003; Q9968